=== PATIENT | male | born 1955 | race Caucasian/White ===

== ENCOUNTER 2018-01-11 13:38 | Day surgery (SDC) | payer MEDICARE ==
[~2018-01-11] VITALS: Ht 188 cm; Wt 117.2 kg
[~2018-01-11 13:38] MED LIST: ATOR40TA PO; CALCIUM PO; CEPH500T PO; CHOL400T12 PO; CLON-364 PO; CYCL-259 PO; DESI25TA PO; ESOM20CA PO; GABA300C10 PO; HYDR12.53 PO; LAMO150T2 PO; LAMO200T2 PO; LOSA25TA5 PO; OMEG-14 PO; OXYC5CAP2 PO; VENL75TA PO
[2018-01-11] MEDS ORDERED: methylPREDNISolone SOD SUCC 40 MG/ML ONE (13:47)
[2018-01-11] MEDS ORDERED: VERAPAMIL 2.5 MG/ML, 2ML ONE (13:47)
[2018-01-11] MEDS ORDERED: methylPREDNISolone SOD SUCC 125 MG/2 ML ONE (13:47)
[2018-01-11] MEDS ORDERED: LACTATED RINGERS 1,000 ML IV SCH (14:13)
[2018-01-11 14:15] VITALS: BP 113/73
[2018-01-11] MEDS ORDERED: ESCI10TA10 PO (14:29)
[2018-01-11] MEDS ORDERED: BUSP10TA PO (14:29)
[2018-01-11] MEDS ORDERED: SUCR1TAB PO (14:29)
[2018-01-11] MEDS ORDERED: LOSA50TA6 PO (14:29)
[2018-01-11] MEDS ORDERED: LAMO200T2 PO (14:29)
[2018-01-11] MEDS ORDERED: BUPR150T73 PO (14:29)
[2018-01-11] MEDS ORDERED: CLON0.25 PO (14:29)
[2018-01-11] MEDS ORDERED: CLON0.1T PO (14:29)
[2018-01-11] MEDS ORDERED: NIFE30TA13 PO (14:29)
[2018-01-11] MEDS ORDERED: TAMS0.4C2 PO (14:29)
[2018-01-11] MEDS ORDERED: ATOR40TA78 PO (14:29)
[2018-01-11] MEDS ORDERED: ESOM40CA PO (14:29)
[2018-01-11] MEDS ORDERED: ASPI-496 PO (14:29)
[2018-01-11 15:03] LABS: BASOPHILS # (AUTO) 0.02 x10^3/uL (0-0.1); BASOPHILS % (AUTO) 0 % (0-1); EOSINOPHILS # (AUTO) 0.07 x10^3/uL (0-0.4); EOSINOPHILS % (AUTO) 1 % (1-7); LYMPHOCYTES # (AUTO) 2.19 x10^3/uL (1-3.4); LYMPHOCYTES % (AUTO) 28 % (22-44); MD NO; MEAN CORPUSCULAR HEMOGLOBIN 31.1 pg (27.5-34.5); MEAN CORPUSCULAR HGB CONC 33.4 g/dL (33.2-36.2); MEAN CORPUSCULAR VOLUME 93.2 fL (81-97); MEAN PLATELET VOLUME 8.3 fL (7.4-10.4); MONOCYTES # (AUTO) 0.49 x10^3/uL (0.2-0.8); MONOCYTES % (AUTO) 6 % (2-9); NEUTROPHILS # (AUTO) 4.98 x10^3/uL (1.8-6.8); NEUTROPHILS % (AUTO) 64 % (42-75); PLATELET COUNT 301 x10^3/uL (130-400); RED BLOOD COUNT 4.69 x10^6/uL (4.38-5.82); RED CELL DISTRIBUTION WIDTH 12.9 % (9.4-14.8)
[2018-01-11 15:08] LABS: ALBUMIN 4.1 g/dL (3.4-5.0); ANION GAP 8 mmol/L (5-15); CALCIUM 8.9 mg/dL (8.5-10.1); CHLORIDE 110 mmol/L (98-107)
[2018-01-11 15:11] LABS: ALANINE AMINOTRANSFERASE 45 U/L (12-78); ALKALINE PHOSPHATASE 58 U/L (45-117); BILIRUBIN,TOTAL 0.9 mg/dL (0.2-1.0); CREATININE 1.26 mg/dL (0.7-1.3)
[2018-01-11] MEDS ORDERED: KETAMINE 10 MG/ML, 20ML ONE ×2 (15:15→17:07)
[2018-01-11] MEDS ORDERED: FENTANYL PF 250 MCG/5ML ONE (15:15)
[2018-01-11] MEDS ORDERED: MIDAZOLAM 1 MG/ML, 2ML ONE (15:15)
[2018-01-11 16:14] LABS: CULTURE INDICATED? YES; MICROSCOPIC AUTO
[2018-01-11] MEDS ORDERED: LIDOCAINE-MPF 1%, 2ML ONE (16:52)
[2018-01-11] MEDS ORDERED: PHENYLEPHRINE 10 MG/ML ONE (17:07)
[2018-01-11] MEDS ORDERED: LIDOCAINE PF 2%, 5ML ONE (17:07)
[2018-01-11] MEDS ORDERED: CEFAZOLIN 1,000 MG ONE (17:07)
[2018-01-11] MEDS ORDERED: PROPOFOL 10 MG/ML, 20ML ONE (17:07)
[2018-01-11] MEDS ORDERED: DEXAMETHASONE 4 MG/ML, 1ML ONE (17:07)
[2018-01-11] MEDS ORDERED: hydrALAzine 20 MG/ML, 1ML IV PRN (18:00)
[2018-01-11] MEDS ORDERED: HYDROmorphone 2 MG/ML, 1ML IV PRN (18:00)
[2018-01-11] MEDS ORDERED: PROMETHAZINE 12.5 MG SUPP PR PRN (18:00)
[2018-01-11] MEDS ORDERED: ACETAMINOPHEN 325 MG TABLET PO PRN (18:00)
[2018-01-11] MEDS ORDERED: MEPERIDINE/PF 25MG/0.5ML IVPush PRN (18:00)
[2018-01-11] MEDS ORDERED: FENTANYL PF 100 MCG/2ML IV PRN (18:00)
[2018-01-11] MEDS ORDERED: LORazepam 2 MG/ML, 1ML IVPush PRN (18:00)
[2018-01-11] MEDS ORDERED: OXYcodone 5 MG/5 ML ORAL.SOL UDC PO PRN (18:00)
[2018-01-11] MEDS ORDERED: LABETALOL 5MG/ML, 20ML IV PRN (18:00)
[2018-01-11] MEDS ORDERED: ONDANSETRON 2MG/ML, 2ML IVPush PRN (18:00)
[2018-01-11] MEDS ORDERED: LOSARTAN 50MG TABLET PO SCH (21:00)
[2018-01-11] MEDS ORDERED: BUPROPION SR 150 MG TABLET PO SCH (21:00)
[2018-01-11] MEDS ORDERED: ATORVASTATIN 40 MG TABLET PO SCH (21:00)
[2018-01-11] MEDS ORDERED: BUSPIRONE 10 MG TABLET PO SCH (21:00)
[2018-01-11] MEDS ORDERED: LAMOTRIGINE 200 MG TABLET PO SCH (21:00)
[2018-01-11] MEDS ORDERED: SUCRALFATE 1 GM TABLET PO SCH (21:00)
[2018-01-11] MEDS ORDERED: TAMSULOSIN 0.4 MG CAP.ER.24H PO SCH (21:00)
[2018-01-12] MEDS ORDERED: niFEDipine ER 30 MG TABLET.ER PO SCH (09:00)
[2018-01-12] MEDS ORDERED: ASPIRIN 81 MG TABLET EC PO SCH (09:00)
== END 2018-01-11 18:50 ==
LOC: OR 13:38
PROVIDERS: ATTEND Urology
DX: N35.9 Urethral stricture, unspecified (principal); Z72.89 Other problems related to lifestyle; Z88.1 Allergy status to other antibiotic agents
CPT/HCPCS: 36415; 52283; 52341; 80053; 81001; 85025; 87086; 93005; J2250; J2930; J3010; J7120; J0690; J1100; J2704; C1769; J2370; J2920

== ENCOUNTER → 2018-02-09 | Outpatient (CLI) | payer MEDICARE ==
[~2018-02-09] MED LIST changes: +ASPI-496 PO; +ATOR40TA78 PO; +BUPR150T73 PO; +BUSP10TA PO; +CLON0.1T PO; +CLON0.25 PO; +ESCI10TA10 PO; +ESOM40CA PO; +GADOBUTROL 10 MMOL/10 ML VIAL ONE; +LOSA50TA6 PO; +NIFE30TA13 PO; +SUCR1TAB PO; +TAMS0.4C2 PO
== END | disposition home or self-care (01) ==
LOC: CFH 10:13
PROVIDERS: ATTEND Radiology Radiation Oncology
DX: C61 Malignant neoplasm of prostate (principal)
CPT/HCPCS: 72197; A9585